=== PATIENT | female | born 1955 | race Caucasian/White ===

== ENCOUNTER → 2021-04-09 | Outpatient (CLI) | payer OTHER ==
[~2021-04-09] MED LIST: LIDOCAINE 1% INJ 20 ML 20 ML VIAL INJ ONE
--- NOTE | 2021-04-09 10:22 | Diagnostic Imaging Report ---
INDICATION: Right breast mass. Patient presents for ultrasound guided core biopsy. DETAILS OF THE PROCEDURE: The patient was brought to the sonographic suite and placed on the table in the supine position. Ultrasound imaging of the right breast was performed to evaluate for an appropriate entry site. The right breast was then prepped and draped in the usual sterile fashion. A small amount of 1% lidocaine was utilized for local anesthesia. Multiple core biopsies were obtained of the irregular hypoechoic mass at the 1 o'clock location of the right breast 9 cm from the nipple utilizing a 14-gauge Achieve needle. A marker clip was then deployed. Hemostasis was obtained using manual compression. The patient tolerated the procedure well and left the Department in stable condition. IMPRESSION: Successful ultrasound guided core biopsy of the irregular hypoechoic mass at the 1 o'clock location of the right breast 9 cm from the nipple. Pathology results are currently pending. Dictated by: Dictated on workstation # [id number]
--- NOTE | 2021-04-09 12:38 | Diagnostic Imaging Report ---
INDICATION: Right breast mass, status post biopsy. FINDINGS: Unilateral right 2D CC and ML mammography was performed after the patient underwent an ultrasound-guided core biopsy. There is a marker clip posterior to the spiculated mass in the upper right breast at posterior depth. IMPRESSION: The clip is located adjacent and slightly posterior to the spiculated mass in the upper right breast, status post ultrasound-guided biopsy. Dictated by: Dictated on workstation # [id number]
== END ==
LOC: RAD 09:00
PROVIDERS: ATTEND Nurse Practitioner
DX: N63.12 Unspecified lump in the right breast, upper inner quadrant (principal)
CPT/HCPCS: 19083; 77065; G0279

== ENCOUNTER 2021-04-22 05:34 | Outpatient (CLI) | payer OTHER ==
[~2021-04-22] VITALS: Ht 154.9 cm; Wt 100.7 kg
[2021-04-22] MEDS ORDERED: LEVO75TA6 PO (10:30)
== END 2021-04-22 13:25 | disposition home or self-care (01) ==
LOC: PREOP 05:34
PROVIDERS: ATTEND Surgery
DX: Z01.818 Encounter for other preprocedural examination (principal)

== ENCOUNTER 2021-04-24 06:08 | Day surgery (SDC) | payer OTHER ==
[~2021-04-24] VITALS: Ht 154 cm; Wt 100.7 kg
[2021-04-24] VITALS (10 sets, daily range): BP systolic 129–160; BP diastolic 59–86
[~2021-04-24 06:08] MED LIST changes: +LEVO75TA6 PO; -LIDOCAINE 1% INJ 20 ML 20 ML VIAL INJ ONE
[2021-04-24] MEDS ORDERED: LACTATED RINGERS 1,000 ML IV PRN (06:45)
[2021-04-24] MEDS ORDERED: ceFAZolin 2 GM IV Premixed 50 ML IV ONE (06:45)
--- NOTE | 2021-04-24 08:41 | Progress Note-Pre Operative ---
Pre-Operative Progress Note H&P Reviewed The H&P was reviewed, patient examined and no changes noted. Date Seen by Provider: Apr 24, 2021 Time Seen by Provider: 08:40 Date H&P Reviewed: Apr 24, 2021 Time H&P Reviewed: 08:35 Pre-Operative Diagnosis: Right breast cancer JANIS BIANCHI APRN Apr 24, 2021 08:41
[2021-04-24] MEDS ORDERED: HYDR-3817 PO (08:43)
--- NOTE | 2021-04-24 08:44 | Discharge Inst-Surgical ---
D/C Lap Instructions-KIDO Reconcile Patient Problems Problems Reviewed?: Yes New, Converted, or Re-Newed RX: RX on Chart Follow Up Appt in 2 weeks Activity as tolerated No driving for 24 hours No driving while on pain medications Incentive Spirometry use every 2 hours while awake Regular Diet Symptoms to Report: Fever over 101 degree F, Nausea/Vomiting Infection Signs and Symptoms to report: Increased redness, Foul odor of wound, Increased drainage Bathing instructions: May shower Operative Area Clean/Dry; Keep incision clean/dry If any problems/questions: Contact your physician or go to Emergency Room JANIS BIANCHI APRN Apr 24, 2021 08:44
[2021-04-24] MEDS ORDERED: ONDANSETRON 4 MG/2 ML (SDV) Z0FRAN IVP PRN ×2 (08:45→16:30)
[2021-04-24] MEDS ORDERED: fentaNYL INJ 100 MCG/2 ML AMP IVP PRN (08:45)
[2021-04-24] MEDS ORDERED: HYDROcodone/APAP 5 MG/325 MG (LORTAB) TAB PO ONE (08:45)
[2021-04-24] MEDS ORDERED: ACETAMINOPHEN 325 MG TABLET PO PRN (08:45)
[2021-04-24] MEDS ORDERED: LIDOCAINE 1% INJ 20 ML 20 ML VIAL ONE (09:28)
[2021-04-24] MEDS ORDERED: LIDOCAINE 1% INJ 20 ML 20 ML VIAL INJ ONE (09:30)
--- NOTE | 2021-04-24 10:57 | Diagnostic Imaging Report ---
INDICATION: Right breast carcinoma. Total of 1.03 mCi filtered technetium 99 M sulfur colloid was injected in 4 separate aliquots in a periareolar distribution within the right breast. Imaging was performed for identification of sentinel node. There was migration of activity to the right axilla. This area was marked on the patient's skin. IMPRESSION: Right breast lymphoscintigraphy for identification of sentinel node. Dictated by: Dictated on workstation # [id number]
--- NOTE | 2021-04-24 11:02 | Diagnostic Imaging Report ---
INDICATION: Right breast carcinoma. Patient presents for ultrasound-guided hookwire placement. Patient is brought to the ultrasound room and placed on the table in supine position. Ultrasound imaging of the right breast was performed to evaluate appropriate entry site. Right breast was prepped and draped in usual sterile fashion. Small amount of 1% lidocaine was utilized for local anesthesia. Needle localization needle was advanced through the hypoechoic lesion at the 1:00 location of the right breast. Hookwire was deployed. Needle was removed. Wire was affixed to the patient's skin. Patient tolerated procedure well and was sent for post procedure mammogram in satisfactory condition. IMPRESSION: Successful ultrasound-guided hookwire placement, as described. Dictated by: Dictated on workstation # [id number]
[2021-04-24] MEDS ORDERED: METHYLENE BLUE 0.5% (PROVAYBLUE) 50 mg/10 ml vial IV ONE (11:12)
[2021-04-24] MEDS ORDERED: LIDOCAINE/EPI 1%-1:100,000 (XYLOCAINE) 20ML ONE (11:12)
--- NOTE | 2021-04-24 11:39 | Diagnostic Imaging Report ---
INDICATION: Right breast carcinoma. Patient is status post right breast hookwire placement. Unilateral right 2-D CC and ML mammography was performed. Images demonstrate hookwire through the spiculated lesion in the upper and inner aspect of the right breast. IMPRESSION: Hookwire placement, as described. Dictated by: Dictated on workstation # [id number]
[2021-04-24] MEDS ORDERED: fentaNYL INJ 100 MCG/2 ML AMP ONE (14:31)
[2021-04-24] MEDS ORDERED: MIDAZOLAM 2 MG/2 ML (VERSED) VIAL ONE ×2 (14:31→14:32)
[2021-04-24] MEDS ORDERED: ONDANSETRON 4 MG/2 ML (SDV) Z0FRAN ONE (14:38)
[2021-04-24] MEDS ORDERED: proPOfol 200 MG/20 ML (DIPRIVAN) VIAL IV ONE (14:38)
[2021-04-24] MEDS ORDERED: LIDOCAINE PF 2% 5 ML (XYLOCAINE) VIAL ONE (14:38)
--- NOTE | 2021-04-24 16:06 | Diagnostic Imaging Report ---
INDICATION: Right breast carcinoma, status post lumpectomy. EXAMINATION: Specimen radiograph of the right breast was submitted. The hook wire is located within the specimen. Spiculated mass is also located within the specimen between the coordinates for an "A" as well as "G" and "K". IMPRESSION: Specimen radiograph, as described. Dictated by: Dictated on workstation # [id number]
--- NOTE | 2021-04-24 16:07 | Progress Note-Post Operative ---
Post-Operative Progess Note Surgeon (s)/Light Equipment Operator (s) Surgeon KVNG DE LA CRUZ MD Light Equipment Operator: katherine heller PROCESS PROJECT ENGINEER Pre-Operative Diagnosis Right breast cancer Post-Operative Diagnosis same Procedure & Operative Findings Date of Procedure 04/24/21 Procedure Performed/Findings right breast needle localization breast bx, subdermal injection, sentinel node biopsy. Anesthesia Type get Estimated Blood Loss Estimated blood loss (mL): minimal Specimens/Packing Specimens Removed right breast lesion, right deep axillary node (count #[id number], background #27). KVNG DE LA CRUZ MD Apr 24, 2021 16:07
[2021-04-24] MEDS ORDERED: SEVOFLURANE (ULTANE) 15 ML INHAL SOLN ONE (16:19)
--- OUTSIDE RECORDS SUMMARY | 2021-04-24 16:26 | XMS REPORT | Clinical Summary ---
Author Author [facility] Organization [facility] Address Unknown Phone Unavailable Care Team Providers Care Radiation Therapy Technician Name Role Phone PCP Unavailable Source Comments [facility] ([facility] Delivery) documents do not appear in the [facility] Allergies Not on File Medications Please verify current medications with patient. Not on file Active Problems Not on file Social History Date Tobacco Use Types Packs/Day Years Used Never Assessed Sex Assigned at Date Recorded Not on file Last Filed Vital Signs Not on file Plan of Treatment Health Maintenance Due Date Last Done Comments CT Colonography 1957 Colon cancer: DNA-based 1957 stool test (Cologuard) HPV/Cotest 1957 Sigmoidoscopy 1957 gFOBT or FIT 1957 COVID-19 Vaccine (1) 1969 Cervical Cancer Screening 1978 Pap Smear 1978 Colonoscopy 2007 Colorectal Cancer 2007 Screening Mammogram 2007 Influenza Vaccine (#1) 2021 Pneumococcal Vaccine: 65+ 2022 Years (1 of 1 - PPSV23) HPV Vaccine Aged Out No longer eligible based on patient's age to complete this topic Pneumococcal Vaccine: Aged Out No longer eligib le based on patient's age to Pediatrics (0 to 5 Years) complete this topic and At-Risk Patients (6 to 64 Years) Results Not on filefrom Last 3 Months
[2021-04-24] MEDS ORDERED: PROMETHAZINE INJ 25 MG/ML (PHENERGAN) AMP IVP ONE (16:30)
[2021-04-24] MEDS ORDERED: fentaNYL INJ 100 MCG/2 ML AMP IVP ONE (16:30)
[2021-04-24] MEDS: MEPERIDINE (DEMEROL) INJ 50 MG/ML IVP ONE ×2 (17:25→17:26)
--- NOTE | 2021-04-24 17:34 | Anesthesia-General Post-Op ---
General Patient Condition Mental Status/LOC: Same as Preop Cardiovascular: Satisfactory Nausea/Vomiting: Absent Respiratory: Satisfactory Pain: Controlled Complications: Absent Post Op Complications Complications None Follow Up Care/Instructions Patient Instructions None needed. Anesthesia/Patient Condition Patient Condition Patient is doing well, no complaints, stable vital signs, no apparent adverse anesthesia problems. No complications reported per nursing. ISABEL SAUCEDO CRNA Apr 24, 2021 17:34
[2021-04-24] MEDS ORDERED: HYDROcodone/APAP 5 MG/325 MG (LORTAB) TAB ONE (18:16)
--- NOTE | 2021-04-24 20:18 | OPERATIVE REPORT ---
DATE OF SERVICE: 04/24/2021 ATTENDING PRIMARY CARE PHYSICIAN: Donnie Johnson DO. PREOPERATIVE DIAGNOSIS: Right breast infiltrating ductal carcinoma. POSTOPERATIVE DIAGNOSIS: Right breast infiltrating ductal carcinoma. PROCEDURES PERFORMED: Right breast subdermal injection, right breast needle localization breast lumpectomy, and sentinel lymph node biopsy. SURGEON: Clarence Salazar MD. WOOD CUTTER: Lalito Mei APRN. ANESTHESIA: General endotracheal. ESTIMATED BLOOD LOSS: Minimal. FINDINGS: No metastasis found on sentinel lymph node and breast margins. SPECIMEN: Included within the x-rayed specimen. SENTINEL LYMPH NODE: [place] lymph node count 100,000. Background 27. DISPOSITION: The patient tolerated the procedure well. INDICATIONS FOR PROCEDURE: The patient is a 66-year-old female, who was found to have a lesion on mammography of the right breast. This was spiculated and suspicious. She then underwent an ultrasound-guided biopsy, which did come back as an infiltrating ductal cancer. The lesion was approximately 1.7 cm in the largest diameter. There was no palpable breast mass as well as no lymphadenopathy. She does not report any first-degree family history of breast cancer; however, a remote history with her maternal grandmother having the disease. DESCRIPTION OF PROCEDURE: The patient was brought to the operating room and laid supine on the table. After adequate IV pain and sedative medications and general endotracheal intubation, the chest, neck and right upper extremity were prepped and draped in a standard surgical fashion. Before this, we proceeded with subdermal injection of isosulfan blue in four quadrants subdermally of the nipple areolar complex. After 15 minutes of massaging the lymphatic channels, we then proceeded to use the nuclear counter to identify the sentinel node. The skin on the anterior axillary line was then anesthetized using 0.5% Marcaine with epinephrine and a skin incision was made using a 15 blade. The subcutaneous tissue was then dissected down using electrocautery. The clavipectoral fascia was then opened using cautery. Using blunt dissection, we then identified the sentinel node by the nuclear counter as well as the blue dye. This was then fully excised using electrocautery and sent to pathology. The frozen section was negative. The subcutaneous tissue was then reapproximated using 3-0 Vicryl interrupted sutures. Skin was closed using 4-0 Monocryl running subcuticular suture. We then proceeded with excision of the breast cancer. A crescent-shaped skin incision along the 12 o'clock position was then made using a 15-blade after the skin was anesthetized using 0.5% Marcaine with epinephrine and the insertion site of the needle was brought into our open portion of the incision. We then proceeded with the meticulous dissection, taking a wide margin of breast tissue around the needle using Cyndi clamps and electrocautery until our posterior margin was the anterior pectoralis fascia. The specimen was then completely excised using electrocautery with visualization of good hemostasis. The specimen was within the x-rayed sample. Good hemostasis was observed and the breast tissue was loosely approximated using 3-0 Vicryl interrupted sutures and the subcutaneous tissue was then reapproximated with the same suture and all skin incisions were closed using 4-0 Monocryl running subcuticular sutures. Wounds were then cleaned and covered with Dermabond. The patient tolerated the procedure well. We will start IV and oral pain medication as well as a clear liquid diet. When she is tolerating clears, has good pain control with oral pain medications, and ambulating well, we will discharge her home. She will be instructed to do no heavy lifting or exertion for the next two weeks. Job ID: [id number] DocumentID: [id number] Dictated Date: 04/24/2021 16:14:41 Hardwood Floor Refinisher Date: 04/24/2021 20:17:48 Dictated By: MD OLIVA RADER
== END 2021-04-24 18:25 ==
LOC: CARD 06:08
PROVIDERS: ATTEND Surgery
DX: C50.211 Malignant neoplasm of upper-inner quadrant of right female breast (principal); E03.9 Hypothyroidism, unspecified; K21.9 Gastro-esophageal reflux disease without esophagitis; Z79.890 Hormone replacement therapy; Z79.899 Other long term (current) drug therapy
CPT/HCPCS: 19285; 19301; 38500; 76098; 77065; 78195; 87081; 88307; 88331; 88332; 88342; A9541; G0279

== ENCOUNTER 2021-06-04 09:30 | Outpatient (CLI) | payer OTHER ==
[~2021-06-04] VITALS: Ht 154 cm; Wt 100.7 kg
[~2021-06-04 09:30] MED LIST changes: +HYDR-3817 PO
[2021-06-05] MEDS ORDERED: HYDR-3817 PO (13:08)
== END 2021-06-04 16:29 | disposition home or self-care (01) ==
LOC: PREOP 09:30
PROVIDERS: ATTEND Surgery
DX: Z01.818 Encounter for other preprocedural examination (principal)

== ENCOUNTER 2021-06-05 11:44 | Day surgery (SDC) | payer OTHER ==
[2021-06-05] VITALS (7 sets, daily range): BP systolic 119–149; BP diastolic 64–98
[~2021-06-05] VITALS: Ht 154 cm; Wt 100.7 kg
--- NOTE | 2021-06-05 06:22 | HISTORY AND PHYSICAL ---
DATE OF SERVICE: DATE OF ADMISSION: 06/05/2021 ATTENDING PRIMARY CARE PHYSICIAN: Donnie Johnson DO HISTORY OF PRESENT ILLNESS: The patient is a 66-year-old female who was seen in 04/2021 for a lesion of the right breast, which was detected on mammography as well as ultrasound. The lesion was 1.5 x 1.3 cm in size and spiculated at the 1 o'clock position of the breast. She did undergo stereotactic biopsy, which did show an infiltrating ductal cancer, which was ER/MO positive and HER2 negative. On 04/24/2021, she underwent a right breast needle localization lumpectomy as well as a sentinel lymph node biopsy. The sentinel node was negative; however, the final pathology of the breast lumpectomy did have a positive margin along the inferior margin. The lesion was small and approximately 2 x 1 cm in size. Due to the positive margin it was recommended that she proceed with a simple mastectomy. MEDICAL HISTORY: Hypothyroid, right breast cancer. PAST SURGICAL HISTORY: Laparoscopic cholecystectomy 2004, total hysterectomy 2004, right breast needle localization lumpectomy and sentinel node biopsy 04/2021. ALLERGIES: MORPHINE, SULFA. MEDICATIONS: Levothyroxine 75 mcg daily. SOCIAL HISTORY: Negative smoke, negative alcohol. FAMILY HISTORY: Mother, father, hypertension. VITAL SIGNS: Stable. Current height 5 feet 1 inch and 100.7 kilograms with body mass index of 41.9. REVIEW OF SYSTEMS: Well-nourished female, in no acute distress. She is not experiencing any shortness of breath or difficulty breathing. No chest pain, palpitations, diaphoresis. No nausea, vomiting, no diarrhea or constipation. No fever, chills, no recent inadvertent weight loss. All other review of systems negative. PHYSICAL EXAMINATION: CHEST: Clear. Good breath sounds bilaterally. HEART: Regular, no murmurs. EXTREMITIES: No lower extremity edema, negative Homans sign. HEENT: No scleral icterus. NECK: No cervical lymphadenopathy. ABDOMEN: Soft, nontender, nondistended. BREASTS: There are no palpable masses. There is a previous dry eschar from the previous lumpectomy, no lymphadenopathy. ASSESSMENT AND PLAN: A 66-year-old female with a history of invasive right ductal breast cancer, ER/MO positive, HER-2 negative, who underwent a needle localization lumpectomy as well as sentinel node. The sentinel node was negative for malignancy; however, there was an inferior margin that was positive on final pathology and in this scenario, we would recommend a simple mastectomy. She is in full understanding of the risks and benefits of the procedure and would like to proceed with a simple mastectomy which we will schedule. Job ID: [id number] DocumentID: [id number] Dictated Date: 06/03/2021 16:56:29 Hospital Recruiter Date: 06/03/2021 17:20:09 Dictated By: KVNG DEL A CRUZ MD
[2021-06-05] MEDS ORDERED: ceFAZolin 2 GM IV Premixed 50 ML IV ONE (12:15)
[2021-06-05] MEDS: LACTATED RINGERS 1,000 ML IV PRN ×2 (13:00→16:09)
--- NOTE | 2021-06-05 13:05 | Progress Note-Pre Operative ---
Pre-Operative Progress Note H&P Reviewed The H&P was reviewed, patient examined and no changes noted. Date Seen by Provider: Jun 05, 2021 Time Seen by Provider: 13:00 Date H&P Reviewed: Jun 05, 2021 Time H&P Reviewed: 13:00 Pre-Operative Diagnosis: right breast cancer KVNG DE LA CRUZ MD Jun 05, 2021 13:05
[2021-06-05] MEDS ORDERED: HYDR-3817 PO (13:08)
--- NOTE | 2021-06-05 13:08 | Discharge Inst-Surgical ---
D/C Lap Instructions-DOROTHY New, Converted, or Re-Newed RX: RX on Chart Follow Up Appt in 1 week Activity as tolerated No driving for 24 hours No driving while on pain medications Incentive Spirometry use every 2 hours while awake Regular Diet Symptoms to Report: Fever over 101 degree F, Nausea/Vomiting Infection Signs and Symptoms to report: Increased redness, Foul odor of wound, Increased drainage Bathing instructions: May shower Operative Area Clean/Dry; Keep incision clean/dry If any problems/questions: Contact your physician or go to Emergency Room KVNG DE LA CRUZ MD Jun 05, 2021 13:08
[2021-06-05] MEDS ORDERED: oxyCODONE/APAP 5/325MG (PERCOCET 5) TABLET PO PRN (13:15)
[2021-06-05] MEDS ORDERED: fentaNYL INJ 100 MCG/2 ML AMP IVP PRN (13:15)
[2021-06-05] MEDS ORDERED: ONDANSETRON 4 MG/2 ML (SDV) Z0FRAN IVP PRN ×2 (13:15→17:00)
[2021-06-05] MEDS ORDERED: ACETAMINOPHEN 325 MG TABLET PO PRN (13:15)
[2021-06-05] MEDS ORDERED: ONDANSETRON 4 MG/2 ML (SDV) Z0FRAN ONE (13:25)
[2021-06-05] MEDS ORDERED: SEVOFLURANE (ULTANE) 15 ML INHAL SOLN ONE ×2 (13:25→16:34)
[2021-06-05] MEDS ORDERED: proPOfol 200 MG/20 ML (DIPRIVAN) VIAL IV ONE (13:25)
[2021-06-05] MEDS ORDERED: MIDAZOLAM 2 MG/2 ML (VERSED) VIAL ONE (13:25)
[2021-06-05] MEDS ORDERED: fentaNYL INJ 100 MCG/2 ML AMP ONE (13:25)
[2021-06-05] MEDS ORDERED: LIDOCAINE PF 2% 5 ML (XYLOCAINE) VIAL ONE (13:25)
[2021-06-05] MEDS ORDERED: BUPIVACAINE 0.5% 30 ML (SENSORCAINE) VIAL ONE (14:18)
[2021-06-05] MEDS ORDERED: ROPIVACAINE 5MG/ML 30ML VIAL ONE (15:53)
--- NOTE | 2021-06-05 16:15 | Progress Note-Post Operative ---
Post-Operative Progess Note Surgeon (s)/Manager Auto (s) Surgeon KVNG DE LA CRUZ MD Manager Auto: katherine SNOW Pre-Operative Diagnosis right breast cancer Post-Operative Diagnosis same Procedure & Operative Findings Date of Procedure 06/05/21 Procedure Performed/Findings simple mastectomy Anesthesia Type get Estimated Blood Loss Estimated blood loss (mL): 150ml Specimens/Packing Specimens Removed right breast and nipple areolar complex. KVNG DE LA CRUZ MD Jun 05, 2021 16:15
[2021-06-05] MEDS ORDERED: HYDROcodone/APAP 7.5 MG/325 MG (LORTAB, LORCET PLUS) TABLET PO PRN (16:30)
[2021-06-05] MEDS ORDERED: MEPERIDINE (DEMEROL) INJ 50 MG/ML IVP ONE (17:00)
[2021-06-05] MEDS ORDERED: fentaNYL INJ 100 MCG/2 ML AMP IVP ONE (17:00)
--- NOTE | 2021-06-05 20:26 | OPERATIVE REPORT ---
DATE OF SERVICE: 06/05/2021 ATTENDING PRIMARY CARE PHYSICIAN: Donnie Johnson DO. PREOPERATIVE DIAGNOSIS: Right breast cancer. POSTOPERATIVE DIAGNOSIS: Right breast cancer. PROCEDURE PERFORMED: Right breast simple mastectomy. SURGEON: Clarence Salazar MD. MECHANIC GENERAL OPERATIONAL TEST: Lalito Mei APRN. ANESTHESIA: General endotracheal with intercostal nerve block. ESTIMATED BLOOD LOSS: 150 mL. FINDINGS: Seroma from previous lumpectomy site. DISPOSITION: The patient tolerated the procedure well. INDICATIONS FOR PROCEDURE: The patient is a 66-year-old female, who was seen on 05/03/2021 for a lesion of the right breast, which was detected on mammography as well as ultrasound. The lesion was 1.5 x 1.3 cm in size and spiculated at the 1 o'clock position of the right breast. She did undergo a stereotactic biopsy, which did show an infiltrating ductal cancer, which was ER/DE positive and HER-2 negative. On 04/24/2021, she underwent a right breast needle localization lumpectomy as well as a sentinel lymph node biopsy. The sentinel node was negative for malignancy; however, the final pathology of the breast lumpectomy did show a positive margin along the inferior aspect. The overall size of the lesion was small, approximately 2 x 1 cm in size. Due to the positive margin, it was recommended that she proceed with a simple mastectomy. DESCRIPTION OF PROCEDURE: The patient was brought to the operating room and laid supine on the table. After adequate IV pain and sedative medications and general endotracheal intubation, the chest and neck were prepped and draped in a standard surgical fashion. Before the procedure, an intercostal nerve block was performed by anesthesia. The nipple areolar complex was then marked off in an elliptical shape and the skin and subcutaneous tissue were then anesthetized using 0.5% Marcaine with epinephrine. We then proceeded with the flap formation starting superiorly. A skin incision along the upper portion of the marking was made using a 10 blade and we proceeded to create our superior flap, taking all of the breast tissue and allowing a layer of subcutaneous tissue, perforating vessels as well as skin. We proceeded to the clavicle superiorly, sternum medially to the insertion site of the rectus abdominis muscle inferiorly and to the latissimus dorsi laterally. The posterior margin was the anterior pectoralis fascia. We proceeded with this systematic dissection using electrocautery with visualization of good hemostasis. The specimen was marked and sent to pathology. Redundant skin was left, which was excised using a 10 blade. The superior and inferior 19-Divehi Gary-Man drains were then placed and brought out laterally and sutured to the skin using 3-0 Prolene sutures. The skin and the subcutaneous tissue were then reapproximated using 3-0 Vicryl interrupted sutures. Skin was closed using a 4-0 Monocryl running subcuticular suture. The wound was then covered with a fluff gauze and a 6-inch Art wrap. The patient tolerated the procedure well. We will admit her for a 23-hour observation for pain control as well as DVT prophylaxis with early ambulation as well as calf SCDs. We will also monitor the drainage output. Job ID: [id number] DocumentID: [id number] Dictated Date: 06/05/2021 16:34:20 Freight Separator Date: 06/05/2021 20:26:02 Dictated By: CLARENCE SALAZAR MD
[2021-06-05] MEDS: ceFAZolin 2 GM IV Premixed 50 ML IV SCH (21:50)
[2021-06-06] VITALS: BP 131/83
[2021-06-06 04:11] VITALS: BP 117/61
[2021-06-06] MEDS: ceFAZolin 2 GM IV Premixed 50 ML IV SCH (05:10)
[2021-06-06 07:55] VITALS: BP 115/70
[2021-06-06 11:48] VITALS: BP 116/65
--- NOTE | 2021-06-06 12:32 | Progress Note ---
Subjective Date Seen by a Provider: Jun 06, 2021 Time Seen by a Provider: 12:00 Subjective/Events-last exam doing well. pain controlled. ambulating well. tolerating diet. SS drain output. Objective Exam Vital Signs Date Time Temp Pulse Resp B/P (MAP) Pulse Ox O2 Delivery O2 Flow Rate FiO2 06/06/21 11:48 36.7 72 20 116/65 (82) 97 Room Air 06/06/21 07:55 36.4 63 20 115/70 (85) 96 Room Air 06/06/21 04:11 36.3 64 19 117/61 (79) 95 Room Air 06/06/21 00:00 36.3 68 17 131/83 (99) 95 Room Air 06/05/21 23:40 Room Air 06/05/21 20:00 Room Air 06/05/21 19:40 37.0 72 20 127/76 (93) 100 Room Air 06/05/21 17:54 Room Air 06/05/21 17:37 Room Air 06/05/21 17:30 36.1 20 141/64 (89) 98 Room Air 06/05/21 17:20 16 142/74 (96) 100 OxyMask 3 06/05/21 17:15 OxyMask 3 06/05/21 17:10 16 125/72 (89) 100 OxyMask 6 06/05/21 17:00 16 122/71 (88) 100 OxyMask 6 06/05/21 16:54 36.3 16 119/81 (94) 100 OxyMask 6 06/05/21 16:54 OxyMask 6 06/05/21 13:00 37.0 89 18 149/98 (115) 100 Room Air I & O 06/06/21 07:00 Intake Total 2340 ml Output Total 320 ml Balance 2020 ml Capillary Refill : General Appearance: No Apparent Distress HEENT: PERRL/EOMI Neck: Full Range of Motion Respiratory: Chest Non Tender, Lungs Clear, Normal Breath Sounds Cardiovascular: Regular Rate, Rhythm Gastrointestinal: normal bowel sounds, non tender, soft Extremity: Normal Capillary Refill Neurologic/Psychiatric: Alert, Oriented x3 Skin: Other (wound clean/dry) Lymphatic: No Adenopathy Results Lab Microbiology 06/05/21 MRSA Screen - Final, Complete MRSA not isolated Assessment/Plan Assessment/Plan Assess & Plan/Chief Complaint s/p right simple mastectomy. ambulate. drain teaching and care. home soon. f/u 1 week. KVNG DE LA CRUZ MD Jun 06, 2021 12:32
--- NOTE | 2021-06-06 13:10 | Anesthesia-General Post-Op ---
General Post Op Complications Complications None Follow Up Care/Instructions Patient Instructions None needed. Anesthesia/Patient Condition Patient Condition No complications reported per nursing. ISABEL SAUCEDO CRNA Jun 06, 2021 13:10
[2021-06-06 13:25] VITALS: BP 116/65
== END 2021-06-06 13:28 | disposition home or self-care (01) ==
LOC: SDC 11:44 → 4TH 18:06 → SDC 06-06 13:28
PROVIDERS: ATTEND Surgery
DX: C50.911 Malignant neoplasm of unspecified site of right female breast (principal); E66.01 Morbid (severe) obesity due to excess calories; E03.9 Hypothyroidism, unspecified; Z98.890 Other specified postprocedural states; Z68.41 Body mass index [BMI] 40.0-44.9, adult; Z79.890 Hormone replacement therapy
CPT/HCPCS: 87081; 94664

== ENCOUNTER 2021-08-19 13:17 | Outpatient (RCR) | payer OTHER ==
[2021-08-19 13:36] LABS: BASOPHILS # (AUTO) 0.1 10^3/uL (0.0-0.1); BASOPHILS % (AUTO) 1 % (0-10); EOSINOPHILS # (AUTO) 0.1 10^3/uL (0.0-0.3); EOSINOPHILS % (AUTO) 1 % (0-10); HEMATOCRIT 38 % (35-52); HEMOGLOBIN 11.8 g/dL (11.5-16.0); LYMPHOCYTES # (AUTO) 1.3 10^3/uL (1.0-4.0); LYMPHOCYTES % (AUTO) 17 % (12-44); MEAN CORPUSCULAR HEMOGLOBIN 30 pg (25-34); MEAN CORPUSCULAR HGB CONC 31 g/dL (32-36); MEAN CORPUSCULAR VOLUME 94 fL (80-99); MEAN PLATELET VOLUME 10.7 fL (9.0-12.2); MONOCYTES # (AUTO) 0.5 10^3/uL (0.0-1.0); MONOCYTES % (AUTO) 6 % (0-12); NEUTROPHILS # (AUTO) 5.7 10^3/uL (1.8-7.8); NEUTROPHILS % (AUTO) 74 % (42-75); PLATELET COUNT 251 10^3/uL (130-400); WHITE BLOOD COUNT 7.7 10^3/uL (4.3-11.0)
[2021-08-19 13:54] LABS: BILIRUBIN,TOTAL 0.5 MG/DL (0.1-1.0); CALCIUM 9.6 MG/DL (8.5-10.1); CREATININE SERUM 0.82 MG/DL (0.60-1.30); POTASSIUM 3.7 MMOL/L (3.6-5.0); TOTAL PROTEIN 7.1 GM/DL (6.4-8.2)
== END 2021-08-27 | disposition home or self-care (01) ==
LOC: ONC 13:17
PROVIDERS: ATTEND Internal Medicine Hematology & Oncology
DX: C50.911 Malignant neoplasm of unspecified site of right female breast (principal); T81.49XA Infection following a procedure, other surgical site, initial encounter; Z90.11 Acquired absence of right breast and nipple
CPT/HCPCS: 80053; 85025; 99213; 99214

== ENCOUNTER 2022-04-08 08:51 | Outpatient (RCR) | payer MEDICARE, OTHER ==
[2022-04-08 09:13] LABS: BASOPHILS # (AUTO) 0.1 10^3/uL (0.0-0.1); BASOPHILS % (AUTO) 1 % (0-10); EOSINOPHILS # (AUTO) 0.2 10^3/uL (0.0-0.3); EOSINOPHILS % (AUTO) 2 % (0-10); HEMATOCRIT 36 % (35-52); HEMOGLOBIN 11.4 g/dL (11.5-16.0); LYMPHOCYTES # (AUTO) 1.4 10^3/uL (1.0-4.0); LYMPHOCYTES % (AUTO) 17 % (12-44); MEAN CORPUSCULAR HEMOGLOBIN 30 pg (25-34); MEAN CORPUSCULAR HGB CONC 32 g/dL (32-36); MEAN CORPUSCULAR VOLUME 94 fL (80-99); MEAN PLATELET VOLUME 10.1 fL (9.0-12.2); MONOCYTES # (AUTO) 0.5 10^3/uL (0.0-1.0); MONOCYTES % (AUTO) 6 % (0-12); NEUTROPHILS # (AUTO) 6.3 10^3/uL (1.8-7.8); NEUTROPHILS % (AUTO) 75 % (42-75); PLATELET COUNT 243 10^3/uL (130-400); WHITE BLOOD COUNT 8.4 10^3/uL (4.3-11.0)
[2022-04-08 09:41] LABS: ALBUMIN 3.9 GM/DL (3.2-4.5); BILIRUBIN,TOTAL 0.4 MG/DL (0.1-1.0); CALCIUM 9.5 MG/DL (8.5-10.1); CREATININE SERUM 0.93 MG/DL (0.60-1.30); POTASSIUM 3.6 MMOL/L (3.6-5.0); TOTAL PROTEIN 6.7 GM/DL (6.4-8.2)
== END 2022-04-12 | disposition home or self-care (01) ==
LOC: ONC 08:51
PROVIDERS: ATTEND Internal Medicine Hematology & Oncology
DX: C50.911 Malignant neoplasm of unspecified site of right female breast (principal); Z90.710 Acquired absence of both cervix and uterus
CPT/HCPCS: 80053; 85025; G0463; 36415; 99213

== ENCOUNTER 2022-10-12 09:43 | Outpatient (RCR) | payer MEDICARE ==
[2022-10-12 09:57] LABS: BASOPHILS # (AUTO) 0.1 10^3/uL (0.0-0.1); BASOPHILS % (AUTO) 1 % (0-10); EOSINOPHILS # (AUTO) 0.2 10^3/uL (0.0-0.3); EOSINOPHILS % (AUTO) 2 % (0-10); HEMATOCRIT 37 % (35-52); HEMOGLOBIN 11.9 g/dL (11.5-16.0); LYMPHOCYTES # (AUTO) 1.4 10^3/uL (1.0-4.0); LYMPHOCYTES % (AUTO) 18 % (12-44); MEAN CORPUSCULAR HEMOGLOBIN 30 pg (25-34); MEAN CORPUSCULAR HGB CONC 32 g/dL (32-36); MEAN CORPUSCULAR VOLUME 93 fL (80-99); MEAN PLATELET VOLUME 10.5 fL (9.0-12.2); MONOCYTES # (AUTO) 0.5 10^3/uL (0.0-1.0); MONOCYTES % (AUTO) 6 % (0-12); NEUTROPHILS # (AUTO) 6.1 10^3/uL (1.8-7.8); NEUTROPHILS % (AUTO) 74 % (42-75); PLATELET COUNT 259 10^3/uL (130-400); WHITE BLOOD COUNT 8.2 10^3/uL (4.3-11.0)
[2022-10-12 10:13] LABS: ALBUMIN 4.1 GM/DL (3.2-4.5); BILIRUBIN,TOTAL 0.5 MG/DL (0.1-1.0); CALCIUM 9.8 MG/DL (8.5-10.1); CREATININE SERUM 0.82 MG/DL (0.60-1.30); POTASSIUM 3.7 MMOL/L (3.6-5.0); TOTAL PROTEIN 7.4 GM/DL (6.4-8.2)
== END 2022-10-13 | disposition home or self-care (01) ==
LOC: ONC 09:43
PROVIDERS: ATTEND Internal Medicine Hematology & Oncology
DX: C50.911 Malignant neoplasm of unspecified site of right female breast (principal); Z90.11 Acquired absence of right breast and nipple
CPT/HCPCS: 80053; 85025; G0463; 36415; 99213

== ENCOUNTER → 2023-04-12 | Outpatient (CLI) | payer MEDICARE | LOC: LAB 10:01 | PROVIDERS: ATTEND Family Medicine | DX: E03.9 Hypothyroidism, unspecified (principal) ==

== ENCOUNTER → 2023-04-12 | Outpatient (RCR) | payer MEDICARE ==
[2023-04-12 10:17] LABS: BASOPHILS % (AUTO) 1 % (0-10); EOSINOPHILS # (AUTO) 0.1 10^3/uL (0.0-0.3); EOSINOPHILS % (AUTO) 2 % (0-10); HEMATOCRIT 38 % (35-52); LYMPHOCYTES # (AUTO) 1.3 10^3/uL (1.0-4.0); LYMPHOCYTES % (AUTO) 18 % (12-44); MEAN CORPUSCULAR HEMOGLOBIN 30 pg (25-34); MEAN CORPUSCULAR HGB CONC 32 g/dL (32-36); MEAN CORPUSCULAR VOLUME 95 fL (80-99); MEAN PLATELET VOLUME 10.6 fL (9.0-12.2); MONOCYTES # (AUTO) 0.4 10^3/uL (0.0-1.0); MONOCYTES % (AUTO) 6 % (0-12); NEUTROPHILS # (AUTO) 5.4 10^3/uL (1.8-7.8); NEUTROPHILS % (AUTO) 74 % (42-75); PLATELET COUNT 235 10^3/uL (130-400); WHITE BLOOD COUNT 7.4 10^3/uL (4.3-11.0)
[2023-04-12 10:36] LABS: ALBUMIN 4.1 GM/DL (3.2-4.5); BILIRUBIN,TOTAL 0.5 MG/DL (0.1-1.0); CALCIUM 9.6 MG/DL (8.5-10.1); CREATININE SERUM 0.82 MG/DL (0.60-1.30); TOTAL PROTEIN 6.9 GM/DL (6.4-8.2)
== END | disposition home or self-care (01) ==
LOC: ONC 09:52
PROVIDERS: ATTEND Internal Medicine Hematology & Oncology
DX: C50.911 Malignant neoplasm of unspecified site of right female breast (principal); Z90.11 Acquired absence of right breast and nipple
CPT/HCPCS: 36415; 80053; 85025

== ENCOUNTER → 2023-04-12 | Outpatient (CLI) | payer MEDICARE ==
[2023-04-12 10:38] LABS: ALBUMIN 4.1 GM/DL (3.2-4.5); BILIRUBIN,TOTAL 0.5 MG/DL (0.1-1.0); CALCIUM 9.6 MG/DL (8.5-10.1); CREATININE SERUM 0.83 MG/DL (0.60-1.30); TOTAL PROTEIN 6.8 GM/DL (6.4-8.2)
== END ==
LOC: LABNPT 10:16
PROVIDERS: ATTEND Family Medicine
DX: E03.9 Hypothyroidism, unspecified (principal)
CPT/HCPCS: 80053; 80061; 84443